=== PATIENT | male | born 1950 | race Caucasian/White ===

== ENCOUNTER 2018-01-31 09:59 | Day surgery (SDC) | payer MEDICARE, OTHER ==
[~2018-01-31] VITALS: Ht 177.8 cm; Wt 100.2 kg
[2018-01-31] VITALS (14 sets, daily range): BP systolic 131–145; BP diastolic 69–89
[2018-01-31] MEDS ORDERED: LIDOcaine 1% 30ml preserv. free vial ONE (10:12)
[2018-01-31] MEDS ORDERED: iohexol 350MG/ML 100ml bottle IV ONE (10:12)
[2018-01-31] MEDS ORDERED: iohexol 350 MG/ML 50ML vial IV ONE (10:12)
[2018-01-31] MEDS ORDERED: midazolam 2 mg/2 ml injection ONE (10:13)
[2018-01-31] MEDS ORDERED: fentaNYL/PF 50MCG/1 ML 2ML syringe ONE (10:13)
[2018-01-31] MEDS ORDERED: SITA100T11 PO (10:21)
[2018-01-31] MEDS ORDERED: ROPI0.5T2 PO (10:21)
[2018-01-31] MEDS ORDERED: METF750T2 PO (10:21)
[2018-01-31] MEDS ORDERED: SIMV40TA PO (10:21)
[2018-01-31] MEDS ORDERED: AMLO1CAP9 PO (10:21)
[2018-01-31 10:31] LABS: BASOPHILS # (AUTO) 0.1 X10'3 (0-0.2); BASOPHILS % (AUTO) 0.8 % (0-1); EOSINOPHILS # (AUTO) 0.2 X10'3 (0-0.9); EOSINOPHILS % (AUTO) 2.3 % (0-6); HEMATOCRIT 52.8 % (42.0-52.0); LYMPHOCYTES # (AUTO) 2.2 X10'3 (1.1-4.8); LYMPHOCYTES % (AUTO) 24.3 % (21-51); MEAN CORPUSCULAR HEMOGLOBIN 29.9 PG (27.0-31.0); MEAN CORPUSCULAR HGB CONC 34.5 % (33.0-36.5); MEAN CORPUSCULAR VOLUME 86.8 FL (78-98); MEAN PLATELET VOLUME 7.2 FL (7.4-10.4); MONOCYTES % (AUTO) 11.6 % (2-12); NEUTROPHILS # (AUTO) 5.5 X10'3 (1.8-7.7); PLATELET COUNT 236 X10'3 (140-440); RED BLOOD COUNT 6.09 X10'6 (4.70-6.10); RED CELL DISTRIBUTION WIDTH 13.3 % (11.5-14.5)
[2018-01-31 10:34] LABS: HEMOGLOBIN 18.2 g/dl (14.0-17.9)
[2018-01-31] MEDS ORDERED: diphenhydrAMINE 50 mg/ml inj ONE (10:40)
[2018-01-31 10:44] LABS: ALBUMIN 4.6 G/DL (3.4-5.0); ANION GAP 9 (8-16); BLOOD UREA NITROGEN 10 MG/DL (7-18); BUN/CREATININE RATIO 9.9 (5.4-32.0); CHLORIDE 102 MMOL/L (99-107); CREATININE 1.01 MG/DL (0.60-1.10); GLUCOSE 183 MG/DL (70-104); PARTIAL THROMBOPLASTIN TIME 27 SECONDS (22-32); POTASSIUM 3.9 MMOL/L (3.5-5.1); PROTHROMBIN TIME 10.2 SECONDS (9.0-12.0); SODIUM 141 MMOL/L (135-145); TOTAL CARBON DIOXIDE 29.9 MMOL/L (24-32); eGFR 73 ML/MIN
[2018-01-31] MEDS ORDERED: nitroGLYCERIN-Tridil 50MG/D5W 250 ML IV ONE (11:09)
[2018-01-31] MEDS ORDERED: HYDROcodone/acetaminophen 10/325mg tab PO PRN (13:30)
[2018-01-31] MEDS ORDERED: proCHLORperazine 10 MG/2 ml inj IV PRN (13:30)
[2018-01-31] MEDS ORDERED: dextrose ORAL solution 15 GM/59 ML bottle PO PRN ×2 (13:30)
[2018-01-31] MEDS ORDERED: nitroGLYCERIN 0.4mg SUBLingual tab SL PRN (13:30)
[2018-01-31] MEDS ORDERED: dextrose 50%-water 50ml dispensing syringe IV PRN ×2 (13:30)
[2018-01-31] MEDS ORDERED: ondansetron/PF 4mg/2ml inj IV PRN (13:30)
[2018-01-31] MEDS ORDERED: OXAZEpam 15mg capsule PO PRN (13:30)
[2018-01-31] MEDS ORDERED: glucagon, human recombinant 1mg kit SUBCUT PRN (13:30)
[2018-01-31] MEDS ORDERED: insulin Lispro (HumaLOG) vial - multi-dose SQ SCH (13:30)
[2018-01-31] MEDS ORDERED: normal saline 1000ml 1,000 ML IV ONE (13:30)
[2018-01-31] MEDS ORDERED: HYDROcodone/acetaminophen 5mg/325mg tablet PO PRN (13:30)
[2018-01-31] MEDS ORDERED: insulin glargine (Lantus) pen - multi-dose SQ SCH (21:00)
== END 2018-01-31 19:30 | disposition home or self-care (01) ==
LOC: SSTAY O 09:59
PROVIDERS: ATTEND Internal Medicine Cardiovascular Disease
DX: I25.10 Atherosclerotic heart disease of native coronary artery without angina pectoris (principal); I10 Essential (primary) hypertension; E78.5 Hyperlipidemia, unspecified; E11.9 Type 2 diabetes mellitus without complications; G89.29 Other chronic pain; G25.81 Restless legs syndrome; G47.33 Obstructive sleep apnea (adult) (pediatric); Z90.89 Acquired absence of other organs; Z72.89 Other problems related to lifestyle; Z79.01 Long term (current) use of anticoagulants; Z96.653 Presence of artificial knee joint, bilateral; Z79.84 Long term (current) use of oral hypoglycemic drugs; Z98.890 Other specified postprocedural states; Z79.899 Other long term (current) drug therapy
CPT/HCPCS: 36415; 71046; 80048; 82948; 85025; 85610; 85730; 93458; 99152; 99153; A6257; C1760; C1769; J1200; J1644; J2250; J3010; J3490; J7030; Q9967; A4620